=== PATIENT | male | born 1985 | race Caucasian/White ===

== ENCOUNTER 2019-07-11 22:25 | Emergency (ER) | payer MEDICAID ==
[2019-07-12] MEDS: IBUPROFEN 600 MG TAB PO (01:37)
[2019-07-12] MEDS: CEPHALEXIN 500 MG CAP PO (01:37)
[2019-07-12] MEDS: HYDROCODONE/APAP (5/325) TAB PO (01:38)
== END 2019-07-12 01:59 | disposition home or self-care (01) ==
LOC: FTE 22:25
DX: K08.9 Disorder of teeth and supporting structures, unspecified (principal)
CPT/HCPCS: 99283; Z7502